=== PATIENT | male | born 1955 | race Caucasian/White ===

== ENCOUNTER 2016-08-17 08:41 | Observation (INO) | payer OTHER ==
--- NOTE | ~2016-08-17 | PRECARD ---
[facility] [address] [place]. 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 Dr. Esquivel presented in 2008 with anterior VA, a Xience drug-eluting stent was placed in the LAD by Dr. Bright, 2.5 x 28. At that time, catheterization demonstrated a 40% stenosis in the circumflex as well as an 80% stenosis in the PDA, his ejection fraction is 55% with apical hypokinesia. Dr. Esquivel did well until about 3 weeks ago. At that time, he had recurrent chest discomfort with activity. He has had two or three subsequent episodes. He had one episode two days ago that occurred while walking up stairs, same type of discomfort he had with his infarct, chest pressure, heaviness, that would last for about 3 minutes, relieved by rest. He had no discomfort in the last 48 hours. He has no orthopnea or PND. No palpitations. No stroke or stroke-like symptoms. He has a history of atrial fibrillation, he is on Pradaxa anticoagulation, atrial flutter, hypertension, sleep apnea, and hyperlipidemia. He stopped his Pradaxa yesterday. PAST MEDICAL HISTORY: Hyperlipidemia, atrial flutter, hypertension, sleep apnea. MEDICATIONS: Aspirin, vitamin D, Pradaxa, lisinopril, Claritin, multivitamin, Prilosec, Crestor, and sotalol. FAMILY HISTORY: Noncontributory. SOCIAL HISTORY: He is an anesthesiologist. No tobacco. Quite active exercising, swimming, plays a fiddle. REVIEW OF SYSTEMS: Complete review of systems was obtained, pertinent negative and unremarkable except as noted above and below. All systems addressed. PHYSICAL EXAMINATION: VITAL SIGNS: Heart rate 48, blood pressure 130/70. GENERAL: Comfortable, in no acute distress. HEENT: No xanthelasma; lips without cyanosis LUNGS: Clear to auscultation, no wheezes, rales or rhonchi; good breath sounds. COR: No JVD or hepatojugular reflux, no murmurs, rubs or gallops, impulse mid clavicular line without carotid or abdominal bruits; normal S1 and S2. ABDOMEN: Bowel sounds positive, normal activity, without tenderness, masses or hepatosplenomegaly. EXTREMITIES: No edema, cyanosis. SKIN: Normal turgor. [facility] [address] [address] NAME: EDVIN ESQUIVEL MD : 51 STATUS : REG REF PAT#: [id number] AGE: 61 ADM/REG DATE : 08/17/16 MR#: [id number] REPORT SERV DATE: 08/17/16 DICTATED BY: ROSI DEWITT DATE: 08/17/16 REPORT STATUS : Draft TRANSCRIBED BY: TAPAN DATE: 08/17/16 Ms: Normal muscle strength, without kyphosis/scoliosis. NEURO/PSYCH: Alert and oriented times 4, no apparent anxiety or depression. IMAGING: EKG shows sinus bradycardia without ischemia. LABORATORIES: Pending. ASSESSMENT: Dr. Esquivel is a very nice 61-year-old gentleman with known coronary artery disease, who had an infarct in 2008, with a 2.5 x 28 Xience drug-eluting stent in the LAD, with recurrent angina, which is progressive. I discussed the risks, benefits, and alternatives of cardiac catheterization and angioplasty with Dr. Esquivel. He understands and requests to proceed. OJ/TAPAN Rosi Dewitt M.D. / [id number] CC: Dennise Valera M.D.
[~2016-08-17 08:41] MED LIST: ASAB PO; BETAPACE80 PO; CLARIT10 PO; CRESTOR20 MG PO; MULTIPLE VIT PO; PRADAXA150 MG PO; PRILO PO; PRIN20 PO; VITAMIN D31000 UNIT PO
[2016-08-17 09:14] LABS: BASOPHILS 0.6 %; BASOPHILS ABSOLUTE 0.04 10/3/uL (0.0-0.16); EOSINOPHILS 3.9 %; EOSINOPHILS ABSOLUTE 0.26 10/3/uL (0.0-0.53); HEMATOCRIT 44.1 % (40.0-51.0); HEMOGLOBIN 15.3 g/dL (13.6-17.8); IMMATURE GRANULOCYTES 0.2 %; IMMATURE GRANULOCYTES ABSOLUTE 0.01 10/3/uL (0.0-0.11); LYMPHOCYTES 31.2 %; LYMPHOCYTES ABSOLUTE 2.07 10/3/uL (0.67-4.30); MEAN CORPUS HGB CONC 34.7 g/dL (32.0-36.0); MEAN CORPUSCULAR HEMOGLOB 30.2 pg (26.0-34.0); MEAN PLATELET VOLUME 9.5 fL (9.2-13.0); MONOCYTES 9.8 %; MONOCYTES ABSOLUTE 0.65 10/3/uL (0.21-1.20); NEUTROPHILS 54.3 %; PLATELET COUNT 153 10/3/uL (150-400); RED CELL COUNT 5.07 10/6/uL (4.7-6.1); WHITE BLOOD CELLS 6.6 10/3/uL (4.5-10.5)
[2016-08-17 09:15] LABS: MANUAL DIFF NO %
[2016-08-17 09:31] LABS: BUN (BLOOD UREA NITROGEN) 16 MG/DL (6-23); CALCIUM, SERUM 8.8 MG/DL (8.5-10.4); CHLORIDE, SERUM 106 MMOL/L (96-112); CHOL/HDL RATIO(NOT ORDER) 3.4 (0-5); CHOLESTEROL 137 MG/DL (< 200); CO2 (CARBON DIOXIDE) 28 MMOL/L (24-34); GFR AFRICAN AMERICAN 82 ML/MIN (>=60); GFR NON AFRICAN AMERICAN 71 ML/MIN (>=60); GLUCOSE, SERUM 127 MG/DL (60-99); HDL CHOLESTEROL 40 MG/DL (> 39); LDL CHOLESTEROL 62 MG/DL (< 130); NON-HDL CHOLESTEROL 97 MG/DL (< 160); POTASSIUM, SERUM 4.2 MMOL/L (3.5-5.3); SODIUM, SERUM 139 MMOL/L (135-148); TRIGLYCERIDE 177 MG/DL (< 150)
[2016-08-18 04:03] LABS: HEMATOCRIT 40.8 % (40.0-51.0)
[2016-08-18 04:15] LABS: BUN (BLOOD UREA NITROGEN) 14 MG/DL (6-23); CALCIUM, SERUM 8.1 MG/DL (8.5-10.4); CHLORIDE, SERUM 110 MMOL/L (96-112); CO2 (CARBON DIOXIDE) 27 MMOL/L (24-34); CREATININE 1.01 MG/DL (0.70-1.30); GFR AFRICAN AMERICAN 91 ML/MIN (>=60); GFR NON AFRICAN AMERICAN 79 ML/MIN (>=60); GLUCOSE, SERUM 129 MG/DL (60-99); POTASSIUM, SERUM 4.2 MMOL/L (3.5-5.3); SODIUM, SERUM 143 MMOL/L (135-148)
[2016-08-18] MEDS ORDERED: PLAVIX PO (07:10)
[2016-08-18] MEDS ORDERED: CRESTOR20 MG PO (07:10)
[2016-08-18] MEDS ORDERED: NITROQUICK0.4 MG SL (07:10)
== END 2016-08-18 07:45 | disposition home or self-care (01) ==
LOC: CORLMH 08:41 → SSU1 09:00
PROVIDERS: Internal Medicine Cardiovascular Disease
PROC: B2111ZZ Fluoroscopy of Multiple Coronary Arteries using Low Osmolar Contrast (ICD-10-PCS; principal; 2016-08-18)
PROC: 027034Z Dilation of Coronary Artery, One Artery with Drug-eluting Intraluminal Device, Percutaneous Approach (ICD-10-PCS; 2016-08-18)
DX: I25.110 Atherosclerotic heart disease of native coronary artery with unstable angina pectoris (principal); I48.92 Unspecified atrial flutter; I10 Essential (primary) hypertension; I48.0 Paroxysmal atrial fibrillation; E78.5 Hyperlipidemia, unspecified; E78.00 Pure hypercholesterolemia, unspecified; G47.30 Sleep apnea, unspecified; Z95.1 Presence of aortocoronary bypass graft; Z79.82 Long term (current) use of aspirin; Z79.01 Long term (current) use of anticoagulants; Z79.899 Other long term (current) drug therapy
CPT/HCPCS: 80048; 80061; 85014; 85018; 85025; 85347; 93005; 93306; 93454; 99152; 99153; A9270-GY; C1725; C1769; C1874; C1887; C1894; C9600; G0378; J0360; J2250; J3010; Q9967